=== PATIENT | female | born 1980 | race Caucasian/White ===

== ENCOUNTER 2024-05-11 09:25 | Emergency (ER) | payer OTHER ==
[~2024-05-11] VITALS: Ht 162.6 cm; Wt 125.0 kg
[2024-05-11 09:32] VITALS: O2SAT 98
[2024-05-11 09:38] VITALS: BP 131/86; PULSE 109; RESP 16; TEMP 36.9; O2SAT 98
[2024-05-11] MEDS ORDERED: DICYCLOMINE 10 MG/5 ML ORAL SYR PO STA (10:10)
[2024-05-11 10:28] LABS: BASOPHILS % 0.4 % (0.0-2.0); EOSINOPHILS % 0.2 % (0.0-5.0); HEMATOCRIT. 45.6 % (36.0-48.0); HEMOGLOBIN. 14.9 g/dL (12.0-16.0); LYMPHOCYTES % 12.7 % (20.0-50.0); MEAN CORPUSCULAR HEMOGLOBIN 27.3 pg (28.0-32.0); MEAN CORPUSCULAR HGB CONC 32.7 g/dL (31.0-37.0); MEAN CORPUSCULAR VOLUME 83.4 fL (81.0-99.0); MEAN PLATELET VOLUME 8.8 fl (7.4-10.4); MONOCYTES % 12.9 % (2.0-8.0); NEUTROPHILS % 73.8 % (40.0-76.0); PLATELET 297 x1000/uL (130-400); RED BLOOD CELL COUNT 5.47 mill/uL (4.2-5.4); RED CELL DISTRIBUTION WIDTH 14.8 % (11.6-14.6); WHITE BLOOD COUNT 11.7 x1000/uL (4.5-11.0)
[2024-05-11] MEDS: MAGNESIUM/ALUMINUM HYDROXIDE/SIMETHICONE 30ML UDC PO STA (10:32)
[2024-05-11 10:49] LABS: CARBON DIOXIDE 20 mEq/L (21-32); CHLORIDE 102 mEq/L (98-107); POTASSIUM 3.8 mEq/L (3.5-5.1); SODIUM 135 mEq/L (136-145)
[2024-05-11 10:50] LABS: CALCIUM 9.5 mg/dL (8.7-10.4)
[2024-05-11] MEDS: DICYCLOMINE HCL 10MG CAPSULE PO NR (10:53)
[2024-05-11] MEDS: ONDANSETRON 4MG ODT PO STA (10:53)
[2024-05-11 10:55] LABS: CREATININE 2.2 mg/dL (0.6-1.0); GLUCOSE 166 mg/dL (70-105); UREA NITROGEN BLOOD 27 mg/dL (9-23)
[2024-05-11 10:56] LABS: ALANINE AMINOTRANSFERASE 43 IU/L (10-49); ALBUMIN 5.2 g/dL (3.2-4.8); ASPARTATE AMINOTRANSFERASE 34 IU/L (<34)
[2024-05-11 10:57] LABS: BILIRUBIN TOTAL 0.4 mg/dL (0.1-1.0); PROTEIN TOTAL 9.3 g/dL (6.0-8.3)
[2024-05-11] MEDS: SODIUM CHLORIDE 0.9% 1,000 ML IV ONE (11:36)
[2024-05-11 11:38] LABS: HCG SCREEN NEGATIVE
[2024-05-11] MEDS ORDERED: ONDA-239 PO (13:39)
== END 2024-05-11 14:06 | disposition home or self-care (01) ==
LOC: ER 09:25
DX: A08.4 Viral intestinal infection, unspecified (principal); N17.9 Acute kidney failure, unspecified; E11.9 Type 2 diabetes mellitus without complications; Z90.49 Acquired absence of other specified parts of digestive tract
CPT/HCPCS: 99284; 96360; 76700; 80053; 84703; 83690; 85025; 36415; Q0162; J7030